=== PATIENT | female | born 1960 | race Caucasian/White ===

== ENCOUNTER 2024-12-17 05:03 | Inpatient (IN) ==
--- NOTE | 2024-11-04 08:39 | PAT Medication Instructions ---
Medication Instructions Date of Service November 04, 2024 Home Medications Medication Instructions Recorded walker #1 ea 09/16/24 walker #1 ea 09/18/24 aspirin 81 mg tablet 81 mg PO QPM calcium 600 mg (as carbonate)-vitamin D3 5 mcg (200 unit) tablet 1 tab PO QAM diltiazem HCl 240 mg capsule,24 hr,extended release 240 mg PO QAM escitalopram oxalate 20 mg tablet (Lexapro) 20 mg PO QAM famotidine 20 mg tablet 20 mg PO QAM furosemide 40 mg tablet (Lasix) 40 mg PO QPM PRN furosemide 40 mg tablet (Lasix) 80 mg PO QAM losartan 100 mg tablet 100 mg PO QAM mirabegron 50 mg tablet,extended release 24 hr (Myrbetriq) 50 mg PO HS nabumetone 500 mg tablet 500 mg PO BID psyllium husk 0.52 gram capsule 0.52 - 1.04 g PO BID simvastatin 40 mg tablet 40 mg PO QPM trazodone 100 mg tablet 150 mg PO HS ascorbic acid (vitamin C) 1,000 mg tablet (Vitamin C) 1,000 mg PO QAM buspirone 10 mg tablet 10 mg PO BID buspirone 10 mg tablet 10 mg PO DAILY PRN coenzyme Q10 100 mg capsule (CoQ-10) 100 mg PO QAM cranberry fruit 450 mg tablet (cranberry) 450 mg PO QAM cyanocobalamin (vitamin B-12) 1,000 mcg tablet (Vitamin B-12) 1,000 mcg PO QAM cyclobenzaprine 10 mg tablet 10 mg PO TID PRN diphenhydramine HCl 25 mg tablet 25 mg PO HS fexofenadine 180 mg tablet (Aliyah Allergy) 180 mg PO QAM gabapentin 600 mg tablet 1,200 mg PO BID hydrocodone 10 mg-acetaminophen 325 mg tablet 1 tab PO Q4H PRN melatonin 12 mg tablet 12 mg PO HS leetwinf-fainmwn-xvqj-lutein tablet 1 tab PO QAM potassium chloride 10 mEq capsule,extended release 20 meq PO BID tirzepatide 12.5 mg/0.5 mL subcutaneous pen injector 12.5 mg subcut WK STOP 7 days before surgery tirzepatide 12.5 mg/0.5 mL subcutaneous pen injector 12.5 mg subcut WK Continue as directed buspirone 10 mg tablet 10 mg PO DAILY PRN(if needed) ASK your surgeon for instructions nabumetone 500 mg tablet 500 mg PO BID ASK your prescriber and surgeon aspirin 81 mg tablet 81 mg PO QPM STOP taking 2 weeks before surgery (or as soon as possible if surgery is within 2 weeks) coenzyme Q10 100 mg capsule (CoQ-10) 100 mg PO QAM DO NOT take the morning of surgery calcium 600 mg (as carbonate)-vitamin D3 5 mcg (200 unit) tablet 1 tab PO QAM furosemide 40 mg tablet (Lasix) 40 mg PO QPM PRN furosemide 40 mg tablet (Lasix) 80 mg PO QAM losartan 100 mg tablet 100 mg PO QAM psyllium husk 0.52 gram capsule 0.52 - 1.04 g PO BID ascorbic acid (vitamin C) 1,000 mg tablet (Vitamin C) 1,000 mg PO QAM cranberry fruit 450 mg tablet (cranberry) 450 mg PO QAM cyanocobalamin (vitamin B-12) 1,000 mcg tablet (Vitamin B-12) 1,000 mcg PO QAM fexofenadine 180 mg tablet (Aliyah Allergy) 180 mg PO QAM vlmlgqul-dysluet-phuc-lutein tablet 1 tab PO QAM potassium chloride 10 mEq capsule,extended release 20 meq PO BID Take morning of surgery With a small sip of water, OTHERWISE NOTHING TO EAT OR DRINK AFTER MIDNIGHT: diltiazem HCl 240 mg capsule,24 hr,extended release 240 mg PO QAM escitalopram oxalate 20 mg tablet (Lexapro) 20 mg PO QAM famotidine 20 mg tablet 20 mg PO QAM buspirone 10 mg tablet 10 mg PO BID cyclobenzaprine 10 mg tablet 10 mg PO TID PRN(if needed) gabapentin 600 mg tablet 1,200 mg PO BID hydrocodone 10 mg-acetaminophen 325 mg tablet 1 tab PO Q4H PRN(if needed) Take evening before surgery mirabegron 50 mg tablet,extended release 24 hr (Myrbetriq) 50 mg PO HS psyllium husk 0.52 gram capsule 0.52 - 1.04 g PO BID simvastatin 40 mg tablet 40 mg PO QPM trazodone 100 mg tablet 150 mg PO HS buspirone 10 mg tablet 10 mg PO BID cyclobenzaprine 10 mg tablet 10 mg PO TID PRN(if needed) diphenhydramine HCl 25 mg tablet 25 mg PO HS gabapentin 600 mg tablet 1,200 mg PO BID hydrocodone 10 mg-acetaminophen 325 mg tablet 1 tab PO Q4H PRN(if needed) melatonin 12 mg tablet 12 mg PO HS potassium chloride 10 mEq capsule,extended release 20 meq PO BID Other Notes If you have any questions please call us at [phone] or [phone] or [phone] or [phone]
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
[2024-12-17] MEDS: LR 60ML/HR IV SCH (05:55)
[2024-12-17] MEDS: LR 500ML BOLUS, THEN 15ML/HR IV SCH (05:55)
[2024-12-17] MEDS: FAMOTIDINE 20 MG TAB PO SCH (05:56)
[2024-12-17] MEDS: ACETAMINOPHEN 500 MG TAB PO SCH ×2 (05:56→13:55)
[2024-12-17] MEDS: METOCLOPRAMIDE HCL 10 MG TABLET PO SCH (05:56)
[2024-12-17] MEDS: CeleBREX 200 MG CAP PO SCH (05:56)
[2024-12-17] MEDS ORDERED: BUPIVACAINE 0.25% PF 30 ML VIAL ONE (06:13)
[2024-12-17] MEDS ORDERED: BUPIVACAINE 0.5 % 5 MG/1 ML PF 10ML VIAL ONE (06:13)
[2024-12-17] MEDS ORDERED: fentaNYL citrate PF 100 MCG/2 ML VIAL ONE (06:36)
[2024-12-17] MEDS ORDERED: PROPOFOL IV EMULSION 10 MG/ML 20 ML VIAL IV ONE ×4 (06:36→09:29)
[2024-12-17] MEDS ORDERED: MIDAZOLAM HCL 1 MG/ML 2ML VIAL ONE (06:36)
--- NOTE | 2024-12-17 06:54 | History & Physical Bridge Note ---
Date of Service December 17, 2024 History & Physical Bridge Note I have examined the patient, reviewed the History & Physical and in the interval since the performance of the History & Physical I have noted the following changes of clinical significance: no changes noted
[2024-12-17] MEDS ORDERED: ATROPINE SULFATE 0.1 MG/ML 10ML SYR IV PRN (07:02)
[2024-12-17] MEDS ORDERED: fentaNYL citrate PF 100 MCG/2 ML VIAL IV PRN (07:02)
[2024-12-17] MEDS ORDERED: ePHEDrine sulfate 50 MG/ML AMP IV PRN (07:02)
[2024-12-17] MEDS ORDERED: ONDANSETRON INJ 2 MG/ML 2 ML VIAL IV PRN ×2 (07:02→10:51)
[2024-12-17] MEDS: ceFAZolin 2000MG 2,000 MG/15 ML SYR IV SCH ×2 (07:09→15:59)
[2024-12-17] MEDS ORDERED: PHENYLEPHRINE HCL 10 MG/ML VIAL ONE (07:21)
[2024-12-17] MEDS ORDERED: DEXAMETHASONE SOD INJ 4 MG/ML VIAL ONE ×2 (07:33)
[2024-12-17] MEDS ORDERED: ePHEDrine sulfate 50 MG/5 ML SYR ONE (07:33)
[2024-12-17] MEDS ORDERED: ONDANSETRON INJ 2 MG/ML 2 ML VIAL ONE (07:35)
[2024-12-17] MEDS ORDERED: ePHEDrine sulfate 50 MG/ML AMP ONE (07:49)
[2024-12-17] MEDS ORDERED: SODIUM CHLORIDE 0.9% PF INJ 10 ML VIAL ONE ×3 (07:51→07:58)
[2024-12-17] MEDS ORDERED: VASOPRESSIN 20 UNIT/ML VIAL ONE (07:57)
[2024-12-17] MEDS: ROPIV 0.5% 246mg, Ketorolac 30mg, EPINEPHrine 0.5mg in NSS INFIL SCH (08:03)
[2024-12-17] MEDS: ORTHO JOINT ANESTHETIC ONE (08:04)
[2024-12-17] MEDS: VANCOMYCIN HCL 1000MG/20ML VIAL ONE (08:22)
[2024-12-17] MEDS: TRANEXAMIC ACID 1,000 MG **IV Intra-op IV SCH (08:43)
--- NOTE | 2024-12-17 10:14 | Operative Report ---
PG Post Operative Report Pre & Post Diagnosis Operation Date: 12/17/24 07:00 Pre-Op Diagnosis: Failed Left Total Knee Replacement, Painful Total knee Post-Op Diagnosis: Failed Left Total Knee Replacement, Painful Total knee I identified the patient and participated in the time-out.: Yes Procedure Operation Date: 12/17/24 07:00 Actual Procedures p Left Revision Total Knee Arthroplasty(Left) - Shaq Ojeda MD Surgeon Shaq Ojeda MD Non Ferrous Material Handler Pan Jacques PA-C Estimated Blood Loss 100 Findings Consistent with Post-Op Diagnosis Operative findings revealed extensive arthritis in the lateral compartment with apparent loosening of the tibial tray and the shifting of the tibial tray. The femoral component still looks to be pretty well-fixed. There was no signs of infection. Specimens Left knee synovium sent for pathology which revealed 2-3 polys per high-power field. Left knee fluid sent for stat Gram stain, aerobic and anaerobic culture. Anesthesia Type Spinal MAC Complications none Disposition Accompanied Patient To Recovery: No Indications The patient is a 64-year-old female who is now about 20 years out from a Deuce medial and patellofemoral compartment arthroplasty. Over the past several years she has developed increasing pain discomfort swelling and instability to the knee. X-rays show progressive knee arthritis along with loosening and shifting of the tibial tray. She elected proceed with surgical treatment. Description of Procedure Operative implants consist of: 1. Biomet Vanguard III 160 left 67.5 posterior stabilized femoral component with a 2.5 mm offset and a 17 x 80 mm stem. 2. Biomet Vanguard III 160 size 71 tibial tray with a 5 mm offset and a 14 x 80 mm stem. 3. 12 mm constrained polyethylene liner. The patient was taken the operating, identified, placed on the operating table in the supine position. All conductors were appropriately padded. IV antibiotics fibra anesthesia team. A spinal anesthetic and been implemented holding area. A Hernandez catheter was placed in sterile fashion. A left thigh tent was then placed. The left lower extremity was then prepped and draped in usual sterile fashion. The left leg was elevated and exsanguinated with use of an Esmarch and a turn was placed at 300 mmHg. An anterior approach left knee was then performed to longitudinal incision centered over the patella. Wease the previous incision site and extended to just slightly proximally. Sharp dissection was got through subcutaneous tissues to the extensor mechanism. A medial parapatellar arthrotomy incision was made. Some subperiosteal dissection was carried out medially. I did a complete synovectomy of the suprapatellar pouch and the medial and lateral gutters as well as posterior to the patella tendon. The synovium was sent for frozen section revealed 2-3 polys per high-power field. We did send the fluid off for the analysis as well but did not get those results back. Considering this we elected proceed with a revision as there is no signs of infection. The ACL and PCL were then released from the distal femur and the tibia was subluxated anteriorly. I removed the polyethylene liner. I then used an ACL sawblade along with the artist lydia to remove the femoral component which was removed with minimal bone loss. It was not grossly loose. I then used the saw along with the osteotomes remove the tibial tray which did appear loose and shifted in position. The intercondylar eminence was excised. We then reamed the tibial canal up to a size 14. The stem was left in place and I made the proximal tibial cut just about the level of the medial defect. The tibia sized to a size 71. This was then prepared for a 5 mm offset stem with a 14 mm x 80 mm stem. This was assembled and placed and fit pretty nicely. Attention was then drawn to the femur. The distal femur termed a sharp drill. I reamed up to a size 17. I used a 2.5 mm offset and sized this to a 67.5 femoral component. Was pinned in place taking great care to get appropriate rotation. The posterior and chamfer cuts were made. The posterior osteophytes removed. The remnant of the lateral meniscus was excised. The the box was created for the femoral component. We then assembled the femoral trial and placed that into trial of the knee. The patella tracked nicely. The peripatellar showed very minimal wear and tracked nicely so we elected to leave that. We try different size) and the 12 implant insertion/liner fit most appropriately. I elected to use a PS plus/constrained insert to maximize her stability. We elected to place his implants. Nupathe all trial implants were removed. I irrigated the wound extensively. A double batch Palacos G cement was mixed with an additional gram of vancomycin. The femoral component was cemented first followed by the tibial component. We cemented the metaphyseal portion as well as the surface but not the stem. All extraneous cement was removed. The polyethylene liner was placed. The knee was reduced and held in extension till cement hardened. Final cement check was then performed. The pericapsular tissues were injected with total of 100 cc of Ortho mix. The patient did receive 1 g tranexamic acid. The tourniquet was then let down for final tourniquet time 111 minutes. Hemostasis assured use electrocautery. Extensor Metros then closed with combination 1 PDS suture and 1 Vicryl suture in a [id number] fashion. Extensor Meclomen checked found be intact and subcutaneous tissue then closed with 2 Dexon suture in a buried interrupted fashion skin was closed skin socorro. Leg was then cleaned and dried and a sterile dressing with Xeroform, 4 fours, sterile cast padding and Mitch bandage were applied. Patient then transferred to the recovery room in stable condition. The patient tolerated procedure well and there were no complications. Pan Jacques, my physician broker assistant, was present for the entire procedure. His assistance was essential and required for appropriate patient positioning, prepping and draping, surgical exposure, performing the technical details of the operation, placement the implants, closure of the wound, and placement of the sterile bandage. I attest to the content of the Intraoperative Record and any orders documented therein. Any exceptions are noted below.
--- NOTE | 2024-12-17 10:46 | Anesthesiology Progress Note ---
Date of Service December 17, 2024 Anesthesia Post Procedure Vital Signs Vital Signs: Temp Pulse Pulse Resp BP Pulse Ox O2 Del Method 12/17/24 10:30 36.4 C L 67 16 118/65 92 Nasal Cannula 12/17/24 10:20 64 16 113/57 L 93 Nasal Cannula 12/17/24 10:10 65 18 109/62 93 Nasal Cannula 12/17/24 10:00 63 10 L 108/62 92 Nasal Cannula 12/17/24 09:54 36.4 C L 66 17 112/67 92 Oxymask 12/17/24 05:38 36.6 C 62 18 126/68 93 Room Air O2 Flow Rate 12/17/24 10:30 4 12/17/24 10:20 4 12/17/24 10:10 4 12/17/24 10:00 4 12/17/24 09:54 6 12/17/24 05:38 Pain Intensity Left Knee: Pain Intensity: 3 Transfer of Care Handoff Completed per policy Notes Mental Status: alert / awake / arousable and participated in evaluation Patient Amnestic to Procedure: Yes Nausea / Vomiting: adequately controlled Pain: adequately controlled Airway Patency, RR, SpO2: stable & adequate BP & HR: stable & adequate Hydration State: stable & adequate Neuraxial Anesthesia: was administered and sensory block is resolving Anesthetic Complications: no major complications apparent and Pt Satisfied with anesthetic care
[2024-12-17] MEDS ORDERED: bisacodyL 10 MG SUPP PR PRN (10:51)
[2024-12-17] MEDS ORDERED: MAGNESIUM HYDROXIDE SUSP 30 ML UDC PO PRN (10:51)
[2024-12-17] MEDS ORDERED: ALUMINUM/MAGNESIUM SUSP 30 ML UDC PO PRN (10:51)
[2024-12-17] MEDS ORDERED: CYCLOBENZAPRINE HCL 10 MG TAB PO PRN (10:51)
[2024-12-17] MEDS ORDERED: TIRZEPATIDE 12.5 MG/0.5 ML SQ SCH (10:51)
[2024-12-17] MEDS ORDERED: diphenhydrAMINE Capsule 25 MG CAP PO PRN (10:51)
[2024-12-17] MEDS ORDERED: FUROSEMIDE 40 MG TAB PO PRN (10:51)
[2024-12-17] MEDS ORDERED: METOCLOPRAMIDE HCL INJ 5 MG/ML 2 ML VIAL IV PRN (10:51)
[2024-12-17] MEDS ORDERED: NALOXONE HCL 0.4 MG/1 ML VIAL/CARP IV PRN (10:51)
[2024-12-17] MEDS ORDERED: ONDANSETRON 4 MG OD TAB PO PRN (10:51)
[2024-12-17] MEDS ORDERED: busPIRone 5 MG TAB PO PRN (10:51)
[2024-12-17] MEDS ORDERED: HYDROmorphone INJ 0.5 MG/0.5 ML SYR IV PRN (10:51)
[2024-12-17] MEDS ORDERED: HYDROcodone/ACETAMINOPHEN 10/325 TAB PO PRN (10:51)
--- NOTE | 2024-12-17 10:56 | XRay Report ---
XR knee LT 1 or 2V routine CLINICAL HISTORY: Surgical Post Op TECHNIQUE: 2 views of the left knee were obtained. Comparison: None available at the time of this dictation. FINDINGS: Patient is status post total knee arthroplasty with expected postsurgical changes including soft tiss ue swelling and subcutaneous emphysema. No periarticular lucency or hardware fracture is seen. IMPRESSION: Expected postoperative appearance status post placement of total knee arthroplasty. ACT 112: Negative or not required by law. Electronically signed by: Celestino Persaud M.D. 12/17/2024 10:54 AM
[2024-12-17] MEDS: KETOROLAC TROMETHAMINE 10 MG TABLET PO SCH (12:41)
[2024-12-17] MEDS: ARTIFICIAL TEARS OP OINT 3.5 GM TUBE OP SCH (12:41)
[2024-12-17] MEDS: TRANEXAMIC ACID / 0.7% NACL 1,000 MG/100 ML BAG IV SCH (16:08)
[2024-12-17] MEDS: ASCORBIC ACID 500 MG TAB PO SCH (17:22)
[2024-12-17] MEDS: oxyCODONE HCL IR 5 MG TAB (IMMEDIATE RELEASE) PO PRN (19:30)
[2024-12-17 19:58] VITALS: TEMP 97.9
[2024-12-17] MEDS ORDERED: NABUMETONE 500 MG TABLET PO SCH (21:00)
[2024-12-17] MEDS ORDERED: ASPIRIN 81 MG ECTAB PO SCH (21:00)
[2024-12-17] MEDS ORDERED: SENNA 8.6 MG TAB PO SCH (21:00)
[2024-12-17] MEDS ORDERED: NON-FORMULARY MEDICATION (Diphenhydramine Hcl 25 mg Tablet) PO SCH (21:00)
[2024-12-17] MEDS: DOCUSATE SODIUM 100 MG CAP PO SCH (21:19)
[2024-12-17] MEDS: SENNA 8.6 MG TAB PO SCH (21:19)
[2024-12-17] MEDS: ASPIRIN 81 MG ECTAB PO SCH (21:19)
[2024-12-17] MEDS: POTASSIUM CHLORIDE CRTAB 20 MEQ TABCR PO SCH (21:19)
[2024-12-17] MEDS: GABAPENTIN 600 MG TAB PO SCH (21:20)
[2024-12-17] MEDS: traZODone HCL 50 MG TAB PO SCH (21:20)
[2024-12-17] MEDS: SIMVASTATIN 10 MG TAB PO SCH (21:20)
[2024-12-17] MEDS: VIBEGRON 75 MG TAB PO SCH (21:20)
[2024-12-17] MEDS: busPIRone 5 MG TAB PO SCH (21:20)
[2024-12-17] MEDS: MELATONIN 3 MG TAB PO SCH (21:20)
[2024-12-18 03:21] VITALS: PULSE 65
[2024-12-18 07:20] LABS: Hematocrit (blood only) 32.5 % (37.0-47.0); Mean Corpuscular Hemoglobin 32.8 pg (25.0-34.0); Mean Corpuscular Hgb Conc 33.8 g/dL (32.0-36.0); Mean Platelet Volume 9.9 fL (9.4-12.4); Platelet Count 253 K/uL (130-400); RDW Coefficient of Variation 12.7 % (11.5-14.5); RDW Standard Deviation 45.5 fL (36.4-46.3); Red Blood Count 3.35 M/uL (4.20-5.40); White Blood Count 15.65 K/ul (4.8-10.8)
[2024-12-18 07:41] LABS: BUN Creatinine Ratio 23.5 (10-20); Calcium 8.8 mg/dl (8.6-10.3); Creatinine Clr Calc Pharmacy 82.4 ml/min
[2024-12-18 07:52] VITALS: BP 121/67; RESP 17
[2024-12-18] MEDS: CALCIUM 600MG + VIT D 400 IU TAB PO SCH (08:19)
[2024-12-18] MEDS: CYANOCOBALAMIN (B-12) 500 MCG TABLET PO SCH (08:19)
[2024-12-18] MEDS: FUROSEMIDE 80 MG TAB PO SCH (08:19)
[2024-12-18] MEDS: FAMOTIDINE 20 MG TAB PO SCH (08:19)
[2024-12-18] MEDS: FEXOFENADINE HCL 180 MG TAB PO SCH (08:20)
[2024-12-18] MEDS: LOSARTAN POTASSIUM 50 MG TAB PO SCH (08:20)
[2024-12-18] MEDS: dilTIAZem HCL 240 MG CAPCR PO SCH (08:20)
[2024-12-18] MEDS: MULTIVITAMIN TAB PO SCH (08:21)
[2024-12-18] MEDS: ESCITALOPRAM OXALATE 20 MG TAB PO SCH (08:21)
[2024-12-18] MEDS: dexAMETHasone 10 MG in SYRINGE 0 ML IV SCH (08:25)
[2024-12-18 08:30] VITALS: O2SAT 93
[2024-12-18] MEDS ORDERED: NON-FORMULARY MEDICATION (Coenzyme Q10 [Coq-10] 100 mg Capsule) PO SCH (09:00)
[2024-12-18] MEDS ORDERED: MULTIVIT MINERAL IRON LUTEIN PO SCH (09:00)
[2024-12-18] MEDS ORDERED: NON-FORMULARY MEDICATION (Ascorbic Acid (Vitamin C) [Vitamin C] 1,000 mg Tablet) PO SCH (09:00)
[2024-12-18] MEDS ORDERED: NON-FORMULARY MEDICATION (Cranberry Fruit [Cranberry] 450 mg Tablet) PO SCH (09:00)
--- NOTE | 2024-12-18 09:05 | Orthopedic Progress Note ---
Date of Service December 18, 2024 Assessment & Plan (1) Status post revision of total replacement of left knee: Plan: 64-year-old female postop day 1 from a left total knee revision. She is doing well. Pains controlled. She is neurologically intact. She was having some issues with her eye which seem to be improved. Plan: 1. DVT prophylaxis including thigh-high teds, SCDs, aspirin twice a day. 2. PT/OT. Weight-bear as tolerated. Left total knee protocol. 3. Pain control. Doing well with current pain regimen. 4. Disposition. The plan is to discharge her to home with some home health if she does okay in therapy today. Admission and Anticipated Discharge Date Admission Date: December 17, 2024 Subjective 64-year-old female postop day 1 from a left knee revision. She is doing pretty well this morning. Pains controlled. Her eyes feeling better. No chest pain or shortness of breath. Not feeling dizzy or lightheaded. Physical Exam Physical Exam: Physical examination reveals a pleasant middle-age female. She is sitting up in bed looks quite comfortable. Examination left leg reveals the dressing be clean dry and intact. She can dorsiflex and plantarflex her foot appropriately. She can do a good straight leg raise. Respiratory: normal respiratory effort, lungs clear to auscultation Cardiovascular: RRR, no murmur, no edema Gastrointestinal (Abdomen): normal bowel sounds, soft, nontender, no hepatosplenomegaly Results & Data Vital Signs (Past 12 Hours) Vital Signs Temp Pulse Resp BP BP Pulse Ox O2 Del Method 12/18/24 08:29 93 Room Air 12/18/24 07:49 36.6 C 65 17 121/67 95 Room Air 12/18/24 03:21 65 18 112/69 96 Nasal Cannula 12/18/24 03:05 36.6 C 59 L 19 101/41 L 96 Room Air 12/17/24 23:23 36.6 C 72 16 110/61 93 Room Air O2 Flow Rate 12/18/24 08:29 12/18/24 07:49 12/18/24 03:21 2 12/18/24 03:05 12/17/24 23:23 Laboratory Results Hemoglobin is 11.0. Hematocrit is 32.5. Electrolytes are stable.
--- NOTE | 2024-12-18 11:18 | Discharge Summary ---
Date of Service December 18, 2024 Admission HPI Per Admitting Provider 12/12/24: Chief Complaint: Progressive left knee pain, discomfort, swelling, catching and giving way. Primary Care Provider: Christa Fernandez PA-C The patient is a 64-year-old female from [facility] who presents for treatment of her left knee. Given she has a history of the left DUSA knee replacement surgery done at [facility] in the s. She had a right knee replaced at that time as well. She did well for a while but over the past several years she has developed increased pain discomfort in her left knee. Gradual getting worse. Gives out intermittently. She is having pain. Its become more disabling and limiting her activities. He has been taking Vicodin for various issues and does not help much. (1) Painful total knee replacement, left: 64-year-old female status post bilateral knee replacement with the left one being induced knee done many years ago in [facility] with progressive knee arthritis and loosening of the tibial tray likely. It is really starting to limit her activities. She like to have this fixed. Plan we talked about treatment. Definitive treatment is conversion to a full knee replacement. She like to proceed along this course. There has been no signs of infection to suggest infection. Her labs were all normal. Will plan on proceeding with a revision no knee replacement. The risks Mente this procedure explained and she understands. Informed consent is obtained. She is planned be discharged to home. Will use aspirin for DVT prophylaxis. Will likely put some vancomycin in the cement. (2) Hyperlipidemia: (3) HTN (hypertension): (4) GERD (gastroesophageal reflux disease): (5) Pre-diabetes: Admission Exam (Per Admitting) Musculoskeletal Physical examination there was a pleasant middle-age female. Looks a little older than her stated age. Examination of the left knee reveal patient ambulates independently. She walks with a fairly normal gait. Small knee effu valentin. Range of motion 0-1 20. No gross instability. She is tender over the lateral joint line. Examination of the right knee reveals well-healed incision. Anatomic alignment at the knee. Range of motion 0-1 20. Constitutional WD/WN, vitals as above Neck trachea midline, no thyromegaly Respiratory normal respiratory effort, lungs clear to auscultation Cardiovascular RRR, no murmur, no edema Gastrointestinal (Abdomen) normal bowel sounds, soft, nontender, no hepatosplenomegaly Discharge Data Procedures Performed Operation Date: 12/17/24 07:00 Actual Procedures p Left Revision Total Knee Arthroplasty(Left) - Shaq Ojeda MD Hospital Course (1) Status post revision of total replacement of left knee: (2) Painful total knee replacement, left: Plan On December 17, 2024 Myra arrived at [facility] operating room and underwent a revision left total knee arthroplasty without complications. Patient had a an adductor canal block and spinal anesthetic for the procedure. Postoperatively, patient was transferred to the general orthopedic floor in stable condition and eventually started onto aspirin 81 mg twice daily for DVT prophylaxis as appropriate. Patient's hospital course was uneventful. On postoperative day #1, patient's vital signs were stable and pain was well-controlled. Patient was able to participate well with physical therapy, safely performing the necessary ambulation and range of motion exercises and properly demonstrating ADL tasks. She was able to perform a straight leg raise without difficulty, and no extensor mechanism lag noted. Patient was then discharged home in stable condition, with home health care and support from significant other. Patient will follow-up with orthopedics in 2 to 3 weeks for postoperative care.
== END 2024-12-18 11:21 | disposition home health service (06) | DRG 468 ==
LOC: ASU 05:03 → 3E 10:06